=== PATIENT | male | born 1990 | race American Indian/Alaskan Native ===

== ENCOUNTER 2021-07-21 09:36 | Emergency (ER) | payer OTHER ==
[2021-07-21] MEDS ORDERED: HYDROcodone/ACETAMINOPHEN 5-325 MG TAB PO ONE (10:14)
[2021-07-21] MEDS ORDERED: TETANUS,DIPH,PERTUSS(ACELL) VACCINE 0.5 ML SYRINGE IM ONE (10:14)
--- NOTE | 2021-07-21 10:53 | XRay Report ---
LEFT HAND 3 VIEW(S) INDICATION / CLINICAL INFORMATION: hand caught in conveyor belt, partial amputation 4th digit. COMPARISON: None available. FINDINGS: BONES / JOINT(S): There is a fracture of the distal phalanx of the fourth digit. No significant arthr itis. SOFT TISSUES: There is soft tissue defects of the distal aspect of the fourth digit. ADDITIONAL FINDINGS: None. Signer Name: Davidson Gardner DO Signed: 07/21/2021 10:48 AM Workstation Name: [id number]
--- NOTE | 2021-07-21 10:57 | Emergency Department Report ---
ED Upper Extremity Inj HPI - General Chief Complaint: Extremity Injury, Upper Stated Complaint: LEFT HAND INJURY Time Seen by Provider: 07/21/21 10:08 Source: patient Mode of arrival: Ambulatory Limitations: No Limitations - History of Present Illness Initial Comments: Patient is a 30-year-old male presents emergency with complaints of a left ring finger injury that occurred just prior to arrival. 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 He states that the belt stopped and he went to fix it and then immediately started going again towards the care and he pulled his finger back out. He has a partial amputation to the left ring finger. He denies any numbness or weakness and is still able to move the finger. He is unsure of his last tetanus immunization. No past medical history. No allergies to medications. - Related Data Previous Rx's Medication Instructions Recorded Last Taken Type HYDROcodone/APAP 5-325 [[place] 1 each PO Q6HR PRN #12 tablet 07/21/21 Unknown Rx 5/325] Ibuprofen [Motrin 600 MG tab] 600 mg PO Q8H PRN #20 tablet 07/21/21 Unknown Rx Mupirocin [Bactroban 2% OINT] 1 applic TP TID #1 tube 07/21/21 Unknown Rx Allergies Allergy/AdvReac Type Severity Reaction Status Date / Time No Known Allergies Allergy Unverified 07/21/21 09:54 ED Review of Systems ROS: Stated complaint: LEFT HAND INJURY Other details as noted in HPI Comment: All other systems reviewed and negative ED Past Medical Hx - Past Medical History Previous Medical History?: No - Surgical History Past Surgical History?: No - Medications Home Medications: Home Medications Medication Instructions Recorded Confirmed Last Taken Type HYDROcodone/APAP 5-325 [[place] 1 each PO Q6HR PRN #12 tablet 07/21/21 Unknown Rx 5/325] Ibuprofen [Motrin 600 MG tab] 600 mg PO Q8H PRN #20 tablet 07/21/21 Unknown Rx Mupirocin [Bactroban 2% OINT] 1 applic TP TID #1 tube 07/21/21 Unknown Rx ED Physical Exam - General Limitations: No Limitations General appearance: alert, in no apparent distress - Head Head exam: Present: atraumatic, normocephalic - Eye Eye exam: Present: normal appearance - ENT ENT exam: Present: mucous membranes moist - Extremities Exam Extremities exam: Present: other (partial amputation of the distal left ring finger, FROM of the LUE, neurovascularly intact) - Neurological Exam Neurological exam: Present: alert, oriented X3 - Psychiatric Psychiatric exam: Present: normal affect, normal mood - Skin Skin exam: Present: warm, dry ED Course Vital Signs 07/21/21 07/21/21 07/21/21 09:56 10:23 12:48 Temperature 98.6 F 98.3 F Pulse Rate 99 H 84 Respiratory 20 16 16 Rate Blood Pressure 142/91 140/84 O2 Sat by Pulse 100 99 Oximetry ED Medical Decision Making - Radiology Data Radiology results: report reviewed Ordering Physician: ALMAZ LAWSON Date of Service: 07/21/21 Procedure(s): XR hand 3+V LT Accession Number(s): [id number] cc: ALMAZ LAWSON Fluoro Time In Minutes: LEFT HAND 3 VIEW(S) INDICATION / CLINICAL INFORMATION: hand caught in conveyor belt, partial amputation 4th digit. COMPARISON: None available. FINDINGS: BONES / JOINT(S): There is a fracture of the distal phalanx of the fourth digit. No significant arthritis. SOFT TISSUES: There is soft tissue defects of the distal aspect of the fourth digit. ADDITIONAL FINDINGS: None. Signer Name: Davidson Arciniega DO Signed: 07/21/2021 10:48 AM Workstation Name: [id number] Transcribed By: SUSANA Dictated By: DAVIDSON ARCINIEGA DO Electronically Authenticated By: DAVIDSON ARCINIEGA DO Signed Date/Time: 07/21/21 1048 DD/ 1047 TD/TT: - Medical Decision Making Patient is a 30-year-old male presents emergency with complaints of a left ring finger injury that occurred just prior to arrival. 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 He states that the belt stopped and he went to fix it and then immediately started going again towards the care and he pulled his finger back out. He has a partial amputation to the left ring finger. He denies any numbness or weakness and is still able to move the finger. He is unsure of his last tetanus immunization. No past medical history. No allergies to medications. Vitals are stable. On exam:partial amputation of the distal left ring finger, FROM of the LUE, neurovascularly intact. X-ray left hand BONES / JOINT(S): There is a fracture of the distal phalanx of the fourth digit. No significant arthritis. SOFT TISSUES: There is soft tissue defects of the distal aspect of the fourth digit. ADDITIONAL FINDINGS: None. 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 Patient placed in finger splint. Patient given IV Ancef due to open fracture. Patient will be referred to orthopedic hand specialist. discussed case with Dr. Minor Moore, ER attending who is agreeable with plan. Advised patient Please use medication as prescribed. Please keep area clean, dry, covered. Please keep your finger splint on. Follow-up with a orthopedic doctor. Return to emergency room for any new or worsening symptoms. Critical care attestation.: If time is entered above; I have spent that time in minutes in the direct care of this critically ill patient, excluding procedure time. ED Disposition Clinical Impression: Partial traumatic amputation of finger through phalanx Qualifiers: Encounter type: initial encounter Qualified Code(s): S68.629A - Partial traumatic transphalangeal amputation of unspecified finger, initial encounter Open fracture of finger Qualifiers: Encounter type: initial encounter Finger: ring finger Phalanx: distal Fracture alignment: nondisplaced Laterality: left Qualified Code(s): S62.665B - Nondisplaced fracture of distal phalanx of left ring finger, initial encounter for open fracture Disposition: 01 HOME / SELF CARE / HOMELESS Is pt being admited?: No Does the pt Need Aspirin: No Condition: Stable Instructions: Finger Fracture, Adult Additional Instructions: Please use medication as prescribed. Please keep area clean, dry, covered. Please keep your finger splint on. Follow-up with a orthopedic doctor. Return to emergency room for any new or worsening symptoms. Prescriptions: Mupirocin [Bactroban 2% OINT] 1 applic TP TID #1 tube Ibuprofen [Motrin 600 MG tab] 600 mg PO Q8H PRN #20 tablet PRN Reason: Pain HYDROcodone/APAP 5-325 [[place] 5/325] 1 each PO Q6HR PRN #12 tablet PRN Reason: Pain , Severe (7-10) Referrals: RICK ESCALANTE MD [Referring] - 3-5 Days [facility] [Provider Group] - 3-5 Days Forms: Work/School Release Form(ED) Time of Disposition: 11:24 Print Language: [place]
[2021-07-21 12:56] VITALS: BP 140/84
== END 2021-07-21 12:56 | disposition home or self-care (01) ==
LOC: ED 09:36
DX: S68.125A Partial traumatic metacarpophalangeal amputation of left ring finger, initial encounter (principal); W31.89XA Contact with other specified machinery, initial encounter; Y93.89 Activity, other specified; Y92.89 Other specified places as the place of occurrence of the external cause; Y99.0 Civilian activity done for income or pay
CPT/HCPCS: 29130; 73130; 90471; 90715; 96365; 99283; J0690